=== PATIENT | male | born 1990 | race Caucasian/White ===

== ENCOUNTER 2025-10-26 13:15 | Emergency (ER) | payer BC, SELFPAY ==
[2025-10-26 13:22] VITALS: BP 136/90; PULSE 74; TEMP 36.7; O2SAT 99; BMI 25.7
--- NOTE | 2025-10-26 14:03 | ED_ITS ---
HPI HPI - General Adult General Chief complaint: Wound/Laceration Stated complaint: laceration Time Seen by Provider: 10/26/25 13:27 Source: patient Mode of arrival: walk-in Limitations: no limitations History of Present Illness HPI narrative: Patient is a 34-year-old male that presents with complaints of laceration to his chin that happened just prior to arrival. He was outside trimming branches and one of them hit him in the chin. He is up-to-date on his tetanus within the last 5 years. Related Data Previous Rx's ?Medication ?Instructions ?Recorded amoxicillin 875 mg-potassium 1 tab PO BID 5 days #10 t abs 10/26/25 clavulanate 125 mg tablet Allergies Allergy/AdvReac Type Severity Reaction Status Date / Time No Known Drug Allergies Allergy Verified 10/26/25 13:26 Review of Systems ROS Status of ROS 10 or more systems reviewed and unremark able except as noted in history and below PFSH PFSH Social History Little interest or pleasure in doing things: not at all Feeling down, depressed, or hopeless: not at all Exam Narrative Exam Narrative: General: No distress, age-appropriate Skin: Warm, dry, no pallor. No rash. 2 cm complex laceration left side of the chin, hemostatic on arrival. Head: Normocephalic, atraumatic. Neck: Supple, non-tender. Eye: Pupils are equal, round and EOMI. No scleral icterus. Ears, Nose, Mouth, and Throat: No nasal mucosal hypertrophy. Oral mucosa is moist, no posterior oropharynx erythema, uvula is mid-line Cardiovascular: Regular Rate and Rhythm without murmur, gallop or rub. Respiratory: No accessory muscle use or respiratory distress. Neurological: A&O x4. No cranial nerve dysfunction observed. No truncal ataxia. Moves all extremities. Sensation intact. Psychiatric: Cooperative and interactive. Normal mood and affect. Constitutional Vital Signs, click to edit/add: Last Vital Signs Temp 98.0 F 10/26/25 13:22 Pulse 74 10/26/25 13:22 Resp 18 10/26/25 13:22 BP 136/90 10/26/25 13:22 Pulse Ox 99 10/26/25 13:22 O2 Del Method Room Air 10/26/25 13:22 Documenting provider has reviewed patient's vital signs: yes Course Vital Signs Vital signs: Vital Signs Temperature 98.0 F 10/26/25 13:22 Pulse Rate 74 10/26/25 13:22 Respiratory Rate 18 10/26/25 13:22 Blood Pressure 136/90 10/26/25 13:22 Pulse Oximetry 99 10/26/25 13:22 Oxygen Delivery Method Room Air 10/26/25 13:22 Temperature 98.0 F 10/26/25 13:22 Pulse Rate 74 10/26/25 13:22 Respiratory Rate 18 10/26/25 13:22 Blood Pressure 136/90 10/26/25 13:22 Pulse Oximetry 99 10/26/25 13:22 Oxygen Delivery Method Room Air 10/26/25 13:22 Medical Decision Making MDM Narrative Medical decision making narrative: The patient is a 34-year-old male who sustained a chin laceration after being struck by a tree branch. The wound was evaluated at the bedside, found to be clean, and repaired with sutures without complication. Given the mechanism of injury and potential cont amination with organic material, prophylactic antibiotics were prescribed: Amoxicillin-Clavulanate 875 mg PO BID for 5 days. The patient?s tetanus immunizations are up to date, so no booster was indicated. The patient tolerated the procedure well and was discharged with wound care instructions, pain management guidance, and advised to have suture removal with primary care in 5 days. The patient was counseled on signs of infection and instructed to return to the ED if these occur. Differential Diagnosis Differential Diagnosis: Laceration Discharge Plan Discharge Chief Complaint: Wound/Laceration Clinical Impression: Facial laceration Patient Disposition: Home, Self-Care Time of Disposition Decision: 14:07 Condition: Good Mode of Transportation: Private Vehicle Prescriptions / Home Meds: New amoxicillin-pot clavulanate 875-125 mg tablet 1 tab PO BID 5 Days Qty: 10 0RF Print Language: Colombian Instructions: Laceration (ED) Additional Instructions: Wound Care: * Keep wound clean and dry for 24 hours. * After 24 hours, gently wash with mild soap and water; pat dry. * Apply antibiotic ointment and cover with a clean bandage as needed. * Avoid shaving or scrubbing over wound. Sutures: * Sutures in place; remove in 5 days at follow-up. * Return sooner if wound opens or shows signs of infection. Medications: * Take prescribed antibiotics as directed; finish entire course. * Pain may be managed with acetaminophen or ibuprofen unless contraindicated. Activity: * Avoid strenuous activity that may reopen wound. * Do not swim or soak wound until sutures are removed. Warning Signs / Return to ED: * Redness, warmth, swelling, pus, or foul odor * Red streaks from the wound * Fever, chills, or worsening pain * Wound reopening or uncontrolled bleeding Follow-Up: * Suture removal in 5 days with primary care or return to ER for removal. Referrals: Clark Miller MD [Primary Care Provider, [facility]] - 1 week Discharge Date/Time: 10/26/25 14:35 Procedures Laceration Laceration Laceration 1: Site: face Side (if applicable): left Size (cm): 2 Description: linear Depth: simple, single layer and involves muscle layer (Complex, involves subcutaneous level, not muscle layer) Anesthetic used: lidocaine 1% Anesthesia technique: local infiltration Amount (ml): 3 Pre-repair: wound explored, irrigated extensively and deep structures intact Skin layer closed with: other (Prolene) Size (cm): 4-0 Number of sutures: 5 Technique: simple, interrupted Subcutaneous layer closed with: Vicryl Size: 3-0 Number of sutures: 1 Technique: simple, interrupted
[2025-10-26] MEDS: LIDOCAINE HCL 1% 100 MG/10 ML MDV INJ (14:33)
== END 2025-10-26 14:35 | disposition home or self-care (01) ==
PROVIDERS: Emergency Provider Emergency Medicine; PCP Family Medicine
DX: S01.81XA Laceration without foreign body of other part of head, initial encounter (principal); W22.8XXA Striking against or struck by other objects, initial encounter; Y93.H2 Activity, gardening and landscaping
CPT/HCPCS: 12011; 99284